=== PATIENT | male | born 1995 | race Caucasian/White ===

== ENCOUNTER 2018-03-24 16:55 | Emergency (ER) ==
[2018-03-24] MEDS: ONDANSETRON 4 MG ORAL DISINTEGRATING TAB (Q0162 PER 1MG) PO (17:19)
[2018-03-24] MEDS: ACETAMINOPHEN 325 MG TAB PO (17:19)
== END 2018-03-24 17:55 | disposition home or self-care (01) ==
LOC: M ED 16:55
DX: S06.0X0A Concussion without loss of consciousness, initial encounter (principal); S00.03XA Contusion of scalp, initial encounter; Y04.8XXA Assault by other bodily force, initial encounter; Y92.59 Other trade areas as the place of occurrence of the external cause; Y99.0 Civilian activity done for income or pay
CPT/HCPCS: Q0162